=== PATIENT | female | born 1970 | race Caucasian/White ===

== ENCOUNTER 2017-07-07 22:36 | Emergency (ER) | payer OTHER ==
[~2017-07-07] VITALS: Ht 177.8 cm; Wt 108.2 kg
[~2017-07-07 22:36] MED LIST: ADDERALL XR 1515 MG PO; CEFTIN500 MG PO; DAILY VALUE1 EACH PO; FIBER THERAPY0.52 GM PO; FLONASE16 G1 BOTH NARES; HYCODAN SYRUP480 ML PO; MIRENA52 MG IY; MOTRIN800 MG PO; NAPROSYN500 MG PO; PROTEIN POWDER454 G1 PO; TESSALON200 MG PO; ZOFRAN4 MG PO
[2017-07-07] MEDS ORDERED: ATARAX,VISTARIL50 MG PO (23:12)
[2017-07-07] MEDS ORDERED: PREDNISONE5 MG PO (23:12)
[2017-07-07 23:26] VITALS: BP 143/94
== END 2017-07-07 23:35 | disposition home or self-care (01) ==
LOC: RME 22:36 → EME 22:36 → RME 23:35
DX: L50.9 Urticaria, unspecified (principal)
CPT/HCPCS: 99281; 99283; Q0177